=== PATIENT | male | born 1990 | race African-American/Black ===

== ENCOUNTER 2020-10-24 18:33 | Emergency (ER) | payer OTHER ==
[~2020-10-24] VITALS: Ht 177.8 cm; Wt 90.6 kg
[2020-10-24] MEDS ORDERED: FLUORESCEIN OPHTH 1 MG STRIP OS ONE (21:05)
[2020-10-24] MEDS ORDERED: PROPARACAINE 0.5% OPHTH SOL 15ML OS ONE (21:05)
[2020-10-24] MEDS ORDERED: OFLOXACIN 0.3 % (OCUFLOX) OPTH SOL 5ML OS ONE (21:30)
[2020-10-24] MEDS ORDERED: OFLO3OPSO OS (21:33)
[2020-10-24 22:05] VITALS: BP 121/83
== END 2020-10-24 22:07 | disposition home or self-care (01) ==
LOC: M ED 18:33
DX: S05.02XA Injury of conjunctiva and corneal abrasion without foreign body, left eye, initial encounter (principal); Y92.9 Unspecified place or not applicable; Y93.9 Activity, unspecified; Y99.9 Unspecified external cause status; Z97.3 Presence of spectacles and contact lenses

== ENCOUNTER 2021-11-18 09:48 | Day surgery (SDC) | payer OTHER ==
[~2021-11-18] VITALS: Ht 177.8 cm; Wt 88.0 kg
[~2021-11-18 09:48] MED LIST: OFLO3OPSO OS; VITMTA PO
[2021-11-18] MEDS ORDERED: LR 1,000 ML IV SCH ×2 (09:55→15:00)
[2021-11-18] MEDS ORDERED: dexameTHASONE 10MG/1ML VIAL PRES.FREE (J1100 PER 1MG) PN ONE (11:15)
[2021-11-18] MEDS ORDERED: ROPIvacaine 0.5% 30ML INJECTION (J2795 PER 1MG) PN ONE (11:15)
[2021-11-18] MEDS ORDERED: LIDOCAINE 1% SDV 5ML VIAL PN ONE (11:15)
[2021-11-18] MEDS: MIDAZOLAM INJ 2MG/2ML VIAL (J2250 PER 1MG) IV PRN ×2 (11:47→12:18)
[2021-11-18] MEDS: fentaNYL 100 MCG/2 ML INJECTION IV PRN ×2 (11:47→12:18)
[2021-11-18] MEDS ORDERED: LIDOCAINE 1% MDV 50ML VIAL As Ordered ONE (11:56)
[2021-11-18] MEDS ORDERED: EPINEPHrine INJ 1 MG/ML 1ML AMP As Ordered ONE (11:56)
[2021-11-18] MEDS ORDERED: LIDOCAINE 1% SDV 30ML VIAL As Ordered ONE (11:57)
[2021-11-18] MEDS ORDERED: ROCURONIUM BROMIDE 50 MG/5 ML VIAL As Ordered ONE (12:21)
[2021-11-18] MEDS ORDERED: propofoL 200 MG/20 ML VIAL As Ordered ONE (12:44)
[2021-11-18] MEDS ORDERED: fentaNYL 100 MCG/2 ML INJECTION As Ordered ONE (12:44)
[2021-11-18] MEDS ORDERED: ONDANSETRON 4MG/2ML VIAL As Ordered ONE (12:44)
[2021-11-18] MEDS ORDERED: MIDAZOLAM INJ 2MG/2ML VIAL (J2250 PER 1MG) As Ordered ONE (12:44)
[2021-11-18] MEDS ORDERED: dexameTHASONE 4 MG/ML 1ML VIAL (J1100 PER 1MG) As Ordered ONE (12:44)
[2021-11-18] MEDS ORDERED: LIDOCAINE 2% 100MG/5ML SDV (FOR ANES.) As Ordered ONE (12:44)
[2021-11-18] MEDS ORDERED: TRANEXAMIC ACID 100 MG/ML 10ML VIAL As Ordered ONE (12:52)
[2021-11-18] MEDS ORDERED: ceFAZolin 2 GM/D5W 50 ML IV BAG (J0690 PER 500MG) As Ordered ONE (12:52)
[2021-11-18] MEDS ORDERED: SUGAMMADEX SODIUM 500 MG/5 ML VIAL (BRIDION) As Ordered ONE (13:04)
[2021-11-18] MEDS ORDERED: VANCOMYCIN 500MG/10ML VIAL As Ordered ONE (14:31)
[2021-11-18] MEDS ORDERED: VANCOMYCIN 1000MG/20ML VIAL As Ordered ONE (14:32)
[2021-11-18] MEDS ORDERED: fentaNYL 100 MCG/2 ML INJECTION IV PRN (15:00)
[2021-11-18] MEDS ORDERED: METOCLOPRAMIDE INJ 10MG/2ML VIAL (J2765 PER 1) IV PRN (15:00)
[2021-11-18] MEDS ORDERED: HYDROMORPHONE HCL 0.5 MG/ 0.5 ML SYRINGE (J1170 PER 1) IV PRN (15:00)
[2021-11-18] MEDS ORDERED: ONDANSETRON 4MG/2ML VIAL IV PRN (15:00)
[2021-11-18] MEDS: oxyCODONE 5MG TAB PO PRN ×2 (15:44→16:12)
[2021-11-18 16:20] VITALS: BP 118/67
== END 2021-11-18 16:50 | disposition home or self-care (01) ==
LOC: M SDC 09:48
PROVIDERS: ATTEND Orthopaedic Surgery
DX: M25.811 Other specified joint disorders, right shoulder (principal); M75.21 Bicipital tendinitis, right shoulder
CPT/HCPCS: 23430; 29807; 29826; C1713; J0171; J0690; J1100; J2250; J2405; J2765; J3010; J3370